=== PATIENT | female | born 1970 | race Two or more races ===

== ENCOUNTER 2021-04-21 18:26 | Inpatient (IN) | payer OTHER ==
[~2021-04-21] VITALS: Ht 165.1 cm; Wt 65.8 kg
[2021-04-21] MEDS ORDERED: LEXAPRO5 MG (18:46)
[2021-04-21] MEDS ORDERED: ADERAL (18:46)
== END 2021-04-29 17:58 | disposition left against medical advice (07) | DRG 344 ==
LOC: ER 18:26 → SURH 04-22 09:12
PROVIDERS: ADMIT Surgery; ATTEND Surgery
PROC: BW21ZZZ Computerized Tomography (CT Scan) of Abdomen and Pelvis (ICD-10-PCS; principal; 2021-04-22)
PROC: 3E0F7SF Introduction of Other Gas into Respiratory Tract, Via Natural or Artificial Opening (ICD-10-PCS; 2021-04-22)
PROC: 8E0ZXY6 Isolation (ICD-10-PCS; 2021-04-23)
PROC: 0D9P30Z Drainage of Rectum with Drainage Device, Percutaneous Approach (ICD-10-PCS; 2021-04-25)
PROC: 05HY33Z Insertion of Infusion Device into Upper Vein, Percutaneous Approach (ICD-10-PCS; 2021-04-27)
PROC: BW2110Z Computerized Tomography (CT Scan) of Abdomen and Pelvis using Low Osmolar Contrast, Unenhanced and Enhanced (ICD-10-PCS; 2021-04-29)
PROC: 0DP Gastrointestinal System, Removal (ICD-10-PCS; 2021-04-29)
DX: K57.20 Diverticulitis of large intestine with perforation and abscess without bleeding (principal); K65.1 Peritoneal abscess; N39.0 Urinary tract infection, site not specified; Z20.822 Contact with and (suspected) exposure to COVID-19; B96.20 Unspecified Escherichia coli [E. coli] as the cause of diseases classified elsewhere